=== PATIENT | male | born 1950 | race Caucasian/White ===

== ENCOUNTER 2023-03-02 06:19 | Outpatient (CLI) | payer MEDICARE, BC, SELFPAY ==
--- NOTE | 2023-03-02 07:53 | P.ANES_ITS ---
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
== END 2023-03-02 06:20 | disposition home or self-care (01) ==
PROVIDERS: PCP Family Medicine; Visit Provider Internal Medicine Gastroenterology
DX: Z12.11 Encounter for screening for malignant neoplasm of colon (principal); K63.5 Polyp of colon; Z86.010 Personal history of colon polyps
CPT/HCPCS: 00811; 45385; 88305; 99100; J2704